=== PATIENT | female | born 1965 ===

== ENCOUNTER 2017-03-03 12:54 | Day surgery (SDC) | payer OTHER ==
[2017-02-01 13:25] VITALS: BMI 32.5
[2017-03-03] MEDS ORDERED: Lidocaine 1% Inj (20ml) ONE (13:50)
[2017-03-03] MEDS ORDERED: Bupivacaine 0.5% Inj(30mL) ONE (13:51)
[2017-03-03] MEDS ORDERED: Propofol 10 mg/ml Inj (20 ML) ONE (14:17)
[2017-03-03] MEDS ORDERED: Lidocaine Hydrochloride 5 ML INJ ONE (14:18)
[2017-03-03] MEDS ORDERED: Midazolam 2 MG/2 ML VIAL ONE (14:18)
[2017-03-03] MEDS ORDERED: Neostigmine Methylsulfate 2 MG/2 ML ML IV ONE (14:18)
[2017-03-03] MEDS ORDERED: Rocuronium 10 mg/ml (5 ml) ONE (14:19)
[2017-03-03] MEDS ORDERED: Succinylcholine 200 mg/10 ml Inj IV ONE (14:22)
[2017-03-03] MEDS ORDERED: Lidocaine 4% (Laryng-O-Jet) Kit MM ONE (14:23)
[2017-03-03] MEDS ORDERED: Lactated Ringer's 1,000 ML IV ONE ×2 (14:36)
[2017-03-03] MEDS ORDERED: Oxycodone/Acetaminophen 5/325 mg Tab PO ONE (15:57)
[2017-03-03] MEDS ORDERED: Lactated Ringer's 1,000 ML IV SCH (16:00)
--- NOTE | 2017-03-03 16:16 | PCM.SURG1 ---
Surgeon's Initial Post Op Note - Surgeon's Notes Surgeon: Davi Toscano Gas Dispatcher: [id number] Type of Anesthesia: General Endo Anesthesia Administered By: Carlos Pre-Operative Diagnosis: cholelithiasis Operative Findings: single gallstone in GB infundibulum, omental adhesions to GB Post-Operative Diagnosis: cholelithiasis Operation Performed: laparoscopic cholecystectomy Specimen/Specimens Removed: gallbladder Estimated Blood Loss: EBL {In ML}: 10 Blood Products Given: N/A Drains Used: No Drains Post-Op Condition: Good Date of Surgery/Procedure: 03/03/17 Time of Surgery/Procedure: 16:16
[2017-03-03] MEDS: HYDROmorphone 0.5 mg/0.5 ml ISec IVP PRN ×4 (16:20→17:05)
[2017-03-03 16:23] VITALS: RESP 18
--- NOTE | 2017-03-03 16:41 | CP.SDSHP ---
Same Day Surgery H & P - Allergies Allergies: Allergies No Known Allergies Allergy (Verified 12/31/16 02:52) - Physical Exam Vital Signs: Vital Signs 03/03/17 03/03/17 03/03/17 12:59 15:50 16:05 Temperature 98.6 F 97.6 F Pulse Rate 70 72 62 Respiratory 18 17 18 Rate Blood Pressure 121/78 141/86 148/92 H O2 Sat by Pulse 96 100 100 Oximetry 03/03/17 16:20 Temperature 97.3 F L Pulse Rate 58 L Respiratory 18 Rate Blood Pressure 157/93 H O2 Sat by Pulse 100 Oximetry Short Stay Discharge - Short Stay Discharge Admitting Diagnosis/Reason for Visit: K80.2 Disposition: HOME/ ROUTINE Medications: oxyCODONE/Acetaminophen [Percocet 5/325 mg Tab] 1 tab PO Q4H PRN #14 tab PRN Reason: Pain, Moderate (4-7) Referrals: Mely Puentes MD [Primary Care Provider] - Follow-up: Surgical clinic Additional Instructions (Diet, Activity): Regular Diet Call for fever more than 101 and pain uncontrolled by meds. Ok to shower in 24hours No heavy lifting more than 10 lbs for 2 weeks Follow up with Dr Toscano in the office in 2 weeks Rx in chart Progress Note/Discharge Note with Instructions: VSS, tolerating po Dressings dry and intact Stable postop
--- NOTE | 2017-03-03 19:22 | OP ---
PROCEDURE DATE: 03/03/2017 SURGEON: Dr. Toscano BLOOD BANK WORKER: Dr. Hendrix ANESTHESIA: General. ANESTHESIOLOGIST: Dr. Gonzalez PREOPERATIVE DIAGNOSIS: Cholelithiasis. POSTOPERATIVE DIAGNOSIS: Cholelithiasis. PROCEDURE: Laparoscopic cholecystectomy. DESCRIPTION OF OPERATION: With the patient in the supine position under adequate general anesthesia, the abdomen was prepped and draped in the usual sterile manner. Veress needle puncture was performe d at the umbilicus with insufflation to 15 cm water pressure of CO2 and a 10 mm laparoscopic trocar w as inserted via an infraumbilical incision. Under direct vision, additional trocars were inserted in the epigastrium and right costal margin. The gallbladder was identified and the fundus was grasped and elevated. There were numerous adhesions of the omentum to the free surface of the gallbladder an d these were taken down to expose the infundibulum of the gallbladder. The infundibular portion of t he gallbladder was grasped and retracted laterally. The cystic duct was identified and dissected. T he cystic duct was visualized anteriorly and posteriorly for a view of safety and the cystic duct was then triply clipped and divided. The cystic artery was similarly identified and triply clipped and divided and the gallbladder was dissected free of the liver bed using electrocautery. The liver bed was inspected for hemostasis and the dissection was completed. The gallbladder was placed in a speci men retrieval bag and removed via the umbilical port site. It was noted to contain a 1 cm stone. Th e right upper quadrant was irrigated and suctioned. Pneumoperitoneum was released and the trocars we re removed. The umbilical port site was closed with a [id number] fascial suture of 0 Vicryl. A ll incisions were closed with 4-0 Monocryl subcuticular sutures and Steri-Strips. Dry sterile dressi ngs were applied. The patient tolerated the procedure well and transferred to recovery room in stabl e condition. Estimated blood loss for the procedure was 10 mL. Sammy Toscano MD cc: 58 TT: 03/03/2017 19:22:09 sn
[2017-03-03 19:29] VITALS: BP 117/70; PULSE 66; TEMP 97.9; O2SAT 96
== END 2017-03-03 19:56 | disposition home or self-care (01) ==
LOC: H.OPSURG 12:54
PROVIDERS: ATTEND Specialist
DX: K80.80 Other cholelithiasis without obstruction (principal); E03.9 Hypothyroidism, unspecified; E78.5 Hyperlipidemia, unspecified

== ENCOUNTER 2017-09-19 07:55 | Emergency (ER) | payer SELFPAY ==
[2017-09-19 07:58] VITALS: BP 110/77; PULSE 83; RESP 17; TEMP 98.3; O2SAT 97; BMI 28.3
--- NOTE | 2017-09-19 09:09 | ED PDOC ---
HPI: Abdomen Time Seen by Provider: 09/19/17 08:00 Chief Complaint (Nursing): Abdominal Pain Chief Complaint (Provider): Abdominal pain History Per: Patient History/Exam Limitations: no limitations Onset/Duration Of Symptoms: Days (2) Outside of [place] travel?: No Current Symptoms Are (Timing): Still Present Location Of Pain/Discomfort: Diffuse Quality Of Discomfort: "Pain" Associated Symptoms: Diarrhea, Urinary Symptoms Additional Complaint(s): 52yo female with past medical history of hypercholesterolemia, hyperlipidemia, hyperthyroidsm, cholecystectomy, presents to the ED for evaluation of diffuse abdominal pain, present since 2 days. Patient reports associated diarrhea, dysuria. She denies any fever, chills, nausea, vomiting, hematuria, back pain. She offers no other medical complaints. Past Medical History Reviewed: Historical Data, Nursing Documentation, Vital Signs Vital Signs: Last Vital Signs Temp 98.3 F 09/19/17 07:58 Pulse 83 09/19/17 07:58 Resp 17 09/19/17 07:58 BP 110/77 09/19/17 07:58 Pulse Ox 97 09/19/17 15:56 - Medical History PMH: Hypercholesterolemia, Hyperlipidemia, Hypothyroidism Denies: Chronic Kidney Disease - Family History Family History: States: Unknown Family Hx - Home Medications Home Medications: Ambulatory Orders Medication Instructions Recorded Levothyroxine [Synthroid] 100 mcg PO DAILY 03/03/17 oxyCODONE/Acetaminophen [Percocet 1 tab PO Q4H PRN #14 tab 03/03/17 5/325 mg Tab] Famotidine [Pepcid] 20 mg PO BID PRN #10 tab 09/19/17 - Allergies Allergies/Adverse Reactions: Allergies Allergy/AdvReac Type Severity Reaction Status Date / Time No Known Allergies Allergy Verified 12/31/16 02:52 Review of Systems ROS Statement: Except As Marked, All Systems Reviewed And Found Negative Constitutional: Negative for: Fever, Chills Gastrointestinal: Positive for: Abdominal Pain, Diarrhea. Negative for: Nausea , Vomiting Genitourinary Female: Positive for: Dysuria. Negative for: Hematuria Musculoskeletal: Negative for: Back Pain Physical Exam - Reviewed Nursing Documentation Reviewed: Yes Vital Signs Reviewed: Yes - Physical Exam Appears: Positive for: Non-toxic, Uncomfortable Head Exam: Positive for: ATRAUMATIC, NORMAL INSPECTION, NORMOCEPHALIC Eye Exam: Positive for: Normal appearance Neck: Positive for: Supple Cardiovascular/Chest: Positive for: Regular Rate, Rhythm Respiratory: Positive for: Normal Breath Sounds. Negative for: Respiratory Distress Gastrointestinal/Abdominal: Positive for: Soft, Tenderness (diffuse abdominal tenderness) Back: Positive for: Normal Inspection Neurologic/Psych: Positive for: Alert, Oriented - Laboratory Results Result Diagrams: 09/19/17 09:46 09/19/17 09:46 - ECG O2 Sat by Pulse Oximetry: 97 (RA) Pulse Ox Interpretation: Normal Medical Decision Making Medical Decision Making: Time: 844 Impression: Abdominal pain x 2 days with associated dysuria Plan: -- Labs -- CT AP Reassess Time: 1334 CT AP IMPRESSION: Upper limits normal caliber of small-bowel loops at the left natanael abdomen without definite obstruction pattern appreciate this time. Clinically correlate further. No ascites or free intrarenal gas is grossly evident. Prior cholecystectomy again evident as well as hepatic steatosis. Time: 1349 Pepcid 20 mg IV fluids ordered Time: 1555 Patient able to tolerate PO intake. pt aware of CT results Stable for discharge home. Scribe Attestation: Documented by Radha Phoenix acting as a scribe for Nathaniel Otero MD. Provider Attestation: All medical record entries made by the Scribe were at my direction and personally dictated by me. I have reviewed the chart and agree that the record accurately reflects my personal performance of the history, physical exam, medical decision making, and the department course for this patient. I have also personally directed, reviewed, and agree with the discharge instructions and disposition. Disposition - Clinical Impression Clinical Impression: Abdominal pain - Patient ED Disposition Is Patient to be Admitted: No Counseled Patient/Family Regarding: Studies Performed, Diagnosis, Need For Followup - Disposition Referrals: [facility] [Outside] [facility] [Outside] Rene Ibarra MD, PhD [Staff Provider] - Disposition: Routine/Home Disposition Time: 09:00 Condition: IMPROVED Additional Instructions: follow up with your primary doctor in 1-2 days return to the ED with any worsening or concerning symptoms Prescriptions: Famotidine [Pepcid] 20 mg PO BID PRN #10 tab PRN Reason: Heartburn Instructions: Abdominal Pain (ED) Forms: [facility] (Macedonian) Print Language: DIVEHI
[2017-09-19] MEDS ORDERED: Iohexol 240 (50 ml) PO ONE (09:23)
[2017-09-19] MEDS ORDERED: Iohexol 240 (50 ml) ONE (09:30)
[2017-09-19 09:59] LABS: BASO % 0.3 % (0.0-2.0); EOS # 0.1 K/uL (0.0-0.7); EOS % 1.2 % (0.0-4.0); HEMATOCRIT 43.4 % (34.0-47.0); LYMPH # 1.9 K/uL (1.0-4.3); LYMPH % 16.5 % (20.0-40.0); MEAN CELL VOLUME 91.9 fl (81.0-99.0); MEAN CORPUSCULAR HEMOGLOBIN 29.7 pg (27.0-31.0); MEAN CORPUSCULAR HGB CONC 32.3 g/dL (33.0-37.0); MEAN PLATELET VOLUME 9.4 fl (7.2-11.7); MONO # 0.9 K/uL (0.0-0.8); MONO % 7.6 % (0.0-10.0); NEUT # 8.5 K/uL (1.8-7.0); NEUT % 74.4 % (50.0-75.0); NRBC % 0.1 % (0.0-0.0); RED CELL DISTRIBUTION WIDTH 13.6 % (11.5-14.5); WHITE BLOOD COUNT 11.4 K/uL (4.8-10.8)
[2017-09-19 10:05] LABS: RBC URINE 4 /hpf (0-3); URINE BACTERIA RARE (<OCC); URINE BILIRUBIN NEGATIVE (NEGATIVE); URINE BLOOD MODERATE (NEGATIVE); URINE COLOR YELLOW (YELLOW); URINE GLUCOSE (UA) NEG (Normal); URINE KETONE NEGATIVE (NEGATIVE); URINE LEUKOCYTE ESTERASE SMALL Leu/uL (Negative); URINE PROTEIN 30 mg/dL (NEGATIVE); URINE UROBILINOGEN 0.2-1.0 mg/dL (0.2-1.0); WBC URINE 3 /hpf (0-5)
[2017-09-19 10:14] LABS: ALB/GLOB RATIO 1.3 (1.0-2.1); ALKALINE PHOSPHATASE 148 U/L (38-126); ALT/SGPT 74 U/L (9-52); AST/SGOT 64 U/L (14-36); BILIRUBIN,TOTAL 0.2 mg/dl (0.2-1.3); BLOOD UREA NITROGEN 21 mg/dl (7-17); CALCIUM 9.3 mg/dL (8.4-10.2); CARBON DIOXIDE 23 mmol/L (22-30); CHLORIDE 108 mmol/L (98-107); GFR AFRICAN-AMERICAN > 60; GLUCOSE,RANDOM 103 mg/dL (65-105); LIPASE 138 U/L (23-300); POTASSIUM 3.9 MMOL/L (3.6-5.0); SODIUM 141 mmol/l (132-148); TOTAL PROTEIN 7.7 G/DL (6.3-8.2)
[2017-09-19] MEDS ORDERED: Iohexol 300 100 ML IJ ONE (12:36)
[2017-09-19] MEDS ORDERED: Sodium Chloride 0.9% 50 ML IV ONE (12:37)
--- NOTE | 2017-09-19 13:36 | CT ---
PROCEDURE: CT Abdomen and Pelvis with contrast HISTORY: abdominal paina COMPARISON: Abdomen pelvis CT with contrast 12/31/2016. TECHNIQUE: Contrast dose: 587.72 Radiation dose: Total exam DLP = 587.72 mGy-cm. This CT exam was performed using one or more of the following dose reduction techniques: Automated exposure control, adjustment of the mA and/or kV according to patient size, and/or use of iterative reconstruction technique. FINDINGS: LOWER THORAX: Trace bilateral basilar dependent atelectasis is appreciated. LIVER: Diffuse fatty infiltration liver is appreciated once again, without focal mass appreciable. GALLBLADDER AND BILE DUCTS: Prior cholecystectomy with likely related, stable dilatation of the common hepatic and proximal common bile ducts. PANCREAS: Unremarkable. No gross lesion or ductal dilatation. SPLEEN: Unremarkable. ADRENALS: Unremarkable. No mass. KIDNEYS AND URETERS: Unremarkable. No hydronephrosis. No solid mass. VASCULATURE: Unremarkable. No aortic aneurysm. BOWEL: There is nonspecific limited dilatation of mid small bowel loops in the left natanael abdomen measuring 2.3 cm greatest dimension. No related mesenteric edema is appreciated in the large bowel is unremarkable. No suspicious mural thickening is grossly evident throughout large and small bowel. APPENDIX: Normal-appearing retrocecal appendix is identified. PERITONEUM: Unremarkable. No free fluid. No free air. LYMPH NODES: Unremarkable. No enlarged lymph nodes. BLADDER: Unremarkable. REPRODUCTIVE: Unremarkable. BONES: No acute fracture. OTHER FINDINGS: None. IMPRESSION: Upper limits normal caliber of small-bowel loops at the left natanael abdomen without definite obstruction pattern appreciate this time. Clinically correlate further. No ascites or free intrarenal gas is grossly evident. Prior cholecystectomy again evident as well as hepatic steatosis.
[2017-09-19] MEDS ORDERED: Sodium Chloride 0.9% 1,000 ML IV STA (14:01)
== END 2017-09-19 17:45 | disposition home or self-care (01) ==
LOC: H.ER 07:55
DX: R10.9 Unspecified abdominal pain (principal); K21.9 Gastro-esophageal reflux disease without esophagitis; E03.9 Hypothyroidism, unspecified; E78.00 Pure hypercholesterolemia, unspecified; K76.0 Fatty (change of) liver, not elsewhere classified; Z90.49 Acquired absence of other specified parts of digestive tract
CPT/HCPCS: 74177; 80053; 81003; 81025; 83690; 85025; 96374; 99283; J7040; Q9966; Q9967

== ENCOUNTER 2017-10-04 10:17 | Day surgery (SDC) | payer SELFPAY ==
[2017-10-04] MEDS ORDERED: Lactated Ringer's 1,000 ML IV ONE (10:31)
[2017-10-04] MEDS ORDERED: Propofol 10 mg/ml Inj (20 ML) ONE (11:15)
[2017-10-04] MEDS ORDERED: Lidocaine 2% MPF (5 ml) Inj ONE (11:15)
[2017-10-04 11:33] VITALS: TEMP 97
[2017-10-04 11:50] VITALS: BP 100/61; PULSE 60; RESP 16; O2SAT 99
== END 2017-10-04 12:14 | disposition home or self-care (01) ==
LOC: H.ENDO 10:17
PROVIDERS: ATTEND Internal Medicine Gastroenterology
DX: Z12.11 Encounter for screening for malignant neoplasm of colon (principal); K64.8 Other hemorrhoids
CPT/HCPCS: G0121; J2704; J7120

== ENCOUNTER 2019-03-05 06:39 | Emergency (ER) | payer OTHER ==
[2019-03-05 06:40] VITALS: BMI 28.3
[2019-03-05 07:03] VITALS: O2SAT 97
[2019-03-05] MEDS ORDERED: Sodium Chloride 0.9% 1,000 ML IV STA (07:22)
--- NOTE | 2019-03-05 07:46 | ED PDOC ---
HPI: Abdomen Time Seen by Provider: 03/05/19 07:12 Chief Complaint (Nursing): Abdominal Pain Chief Complaint (Provider): Abdominal Pain History Per: Patient History/Exam Limitations: no limitations Onset/Duration Of Symptoms: Days (x 1) Outside of [place] travel?: No Current Symptoms Are (Timing): Still Present Context: Food Location Of Pain/Discomfort: Diffuse Quality Of Discomfort: "Pain" Associated Symptoms: Nausea, Diarrhea Alleviating Factors: None Additional Complaint(s): 53 year old female with a history of hypothyroidism presents to the ED for evaluation of diffuse abdominal pain and diarrhea, onset last night. Patient reports 4 episodes of watery, non-bloody diarrhea, intermittent abdominal cramping and mild nausea as well. She states that she ate pizza and drank some soda prior to onset. Patient has not eaten anything since symptoms began. Denies vomiting, constipation, fever, recent travel, chest pain. PMD: Dr. Portillo Past Medical History Reviewed: Historical Data, Nursing Documentation, Vital Signs Vital Signs: Last Vital Signs Temp 97.7 F 03/05/19 07:00 Pulse 63 03/05/19 07:00 Resp 14 03/05/19 07:00 BP 112/76 03/05/19 07:00 Pulse Ox 97 03/05/19 07:00 - Medical History PMH: Hypercholesterolemia, Hyperlipidemia, Hypothyroidism Denies: Chronic Kidney Disease - Surgical History Surgical History: Cholecystectomy - Family History Family History: States: Unknown Family Hx - Home Medications Home Medications: Ambulatory Orders Medication Instructions Recorded Levothyroxine [Synthroid] 100 mcg PO DAILY 03/03/17 Dicyclomine [Dicyclomine HCl] 10 mg PO TID #15 cap 03/05/19 Ondansetron ODT [Zofran ODT] 4 mg PO Q8 PRN #12 odt 03/05/19 - Allergies Allergies/Adverse Reactions: Allergies Allergy/AdvReac Type Severity Reaction Status Date / Time No Known Allergies Allergy Verified 03/05/19 06:56 Review of Systems ROS Statement: Except As Marked, All Systems Reviewed And Found Negative Constitutional: Negative for: Fever, Chills Cardiovascular: Negative for: Chest Pain Gastrointestinal: Positive for: Nausea, Abdominal Pain, Diarrhea. Negative for: Vomiting, Constipation Physical Exam - Reviewed Nursing Documentation Reviewed: Yes Vital Signs Reviewed: Yes - Physical Exam Appears: Positive for: Non-toxic, No Acute Distress, Uncomfortable Head Exam: Positive for: ATRAUMATIC, NORMAL INSPECTION, NORMOCEPHALIC Skin: Positive for: Normal Color, Warm, Dry. Negative for: Rash Eye Exam: Positive for: EOMI, Normal appearance, PERRL Neck: Positive for: Normal, Painless ROM, Supple Cardiovascular/Chest: Positive for: Regular Rate, Rhythm. Negative for: Murmur Respiratory: Positive for: Normal Breath Sounds. Negative for: Respiratory Distress Gastrointestinal/Abdominal: Positive for: Tenderness (mild diffuse tenderness). Negative for: Mass, Guarding, Rebound Back: Positive for: Normal Inspection. Negative for: L CVA Tenderness, R CVA Tenderness Extremity: Positive for: Normal ROM (x 4). Negative for: Deformity Neurological/Psych: Positive for: Awake, Alert, Normal Tone, Oriented (x 3). Negative for: Motor/Sensory Deficits - Laboratory Results Result Diagrams: 03/05/19 07:40 03/05/19 07:40 - ECG ECG: Positive for: Interpreted By Me, Viewed By Me ECG Rhythm: Positive for: Normal QRS, Normal ST Segment, Sinus Rhythm. Negative for: ST/T Changes Rate: 61 O2 Sat by Pulse Oximetry: 97 (RA) Pulse Ox Interpretation: Normal - Progress Re-evaluation Time: 10:29 Condition: Re-examined, Improved Medical Decision Making Medical Decision Makin:21 Impression: abdominal pain and diarrhea Differential diagnoses include, but are not limited to: acute gastroenteritis, colitis, diverticulitis Initial Plan: --CT Abd & Pelvis --CBC --CMP --Lipase --Urine dip --Urine preg --Bentyl 10 mg PO --Zofran Inj 4 mg IV --NS IV 1,000 mls 09:[address] COMPARISON: 09/19/2017. TECHNIQUE: CT scan of the abdomen and pelvis was performed after administration of intravenous contrast. Oral contrast was not administered. Coronal and sagittal reformatted images were obtained. Contrast dose 95 cc Omnipaque 300 Radiation dose: Total exam DLP = 519.73 mGy-cm. This CT exam was performed using one or more of the following dose reduction te chniques: Automated exposure control, adjustment of the mA and/or kV according to patient size, and/or use of iterative reconstruction technique. FINDINGS: LOWER THORAX: The visualized lungs are clear. LIVER: Mild hepatomegaly and fatty liver. Normal homogeneous enhancement. No gross lesion or ductal dilatation. GALLBLADDER AND BILE DUCTS: Surgically absent. PANCREAS: Normal in size with homogeneous enhancement. No gross lesion or ductal dilatation. SPLEEN: Normal in size and appearance. ADRENALS: No discrete nodule. KIDNEYS AND URETERS: Normal in size with homogeneous enhancement. No hydronephrosis. No solid mass. VASCULATURE: No aortic aneurysm. There are early aortic atherosclerotic calcifications and mural plaque present. BOWEL: Evaluation of the bowel is limited in the absence of oral contrast. The proximal small bowel loops are normal in caliber. There is mild dilatation of fluid-filled mid and distal small bowel loops with mild mural enhancement. There is fluid in the ascending and transverse colon. There is also apparent mild mural thickening in the left hemicolon with mild mural enhancement. No evidence for bowel obstruction. APPENDIX: Normal appendix. PERITONEUM: No free fluid. No free air. LYMPH NODES: No enlarged lymph nodes. BLADDER: Well distended and normal in appearance. REPRODUCTIVE: The uterus is normal in size. BONES: No acute fracture. Within normal limits for the patient's age. OTHER FINDINGS: None. IMPRESSION: Findings are most compatible with nonspecific acute infectious/inflammatory enterocolitis. No evidence for bowel obstruction. Mild hepatomegaly and fatty liver. Scribe Attestation: Documented by Yesica Valentin, acting as a scribe Fidencio Russo MD Provider Scribe Attestation: All medical record entries made by the Scribe were at my direction and personally dictated by me. I have reviewed the chart and agree that the record accurately reflects my personal performance of the history, physical exam, medical decision making, and the department course for this patient. I have also personally directed, reviewed, and agree with the discharge instructions and disposition. Disposition - Clinical Impression Clinical Impression: Enterocolitis - Patient ED Disposition Is Patient to be Admitted: No Doctor Will See Patient In The: Office Counseled Patient/Family Regarding: Studies Performed, Diagnosis, Need For Followup - Disposition Referrals: [facility] [Outside] Disposition: Routine/Home Disposition Time: 10:30 Condition: IMPROVED Additional Instructions: SHEILA SUE, thank you for letting us take care of you today. Your provider was Renae Russo MD and you were treated for ABD PAIN. The emergency medical care you received today was directed at your acute symptoms. If you were prescribed any medication, please fill it and take as directed. It may take several days for your symptoms to resolve. Return to the Emergency Department if your symptoms worsen, do not improve, or if you have any other problems. Please contact your doctor or call one of the physicians/clinics you have been referred to that are listed on the Patient Visit Information form that is included in your discharge packet. Bring any paperwork you were given at dis charge with you along with any medications you are taking to your follow up visit. Our treatment cannot replace ongoing medical care by a primary care provider outside of the emergency department. Thank you for allowing the [facility] team to be part of your care today. If you had an X-Ray or CT scan: A Radiologist will review the ED reading if any change in treatment is needed we will contact you. Prescriptions: Dicyclomine [Dicyclomine HCl] 10 mg PO TID #15 cap Ondansetron ODT [Zofran ODT] 4 mg PO Q8 PRN #12 odt PRN Reason: Nausea/Vomiting Instructions: Diarrhea in Adolescents and Adults
[2019-03-05 08:01] LABS: BASO % 0.7 % (0.0-2.0); EOS # 0.2 K/uL (0.0-0.7); EOS % 3.7 % (0.0-4.0); LYMPH # 2.1 K/uL (1.0-4.3); LYMPH % 39.9 % (20.0-40.0); MEAN CELL VOLUME 89.6 fl (81.0-99.0); MEAN CORPUSCULAR HEMOGLOBIN 29.7 pg (27.0-31.0); MEAN CORPUSCULAR HGB CONC 33.1 g/dL (33.0-37.0); MEAN PLATELET VOLUME 9.3 fl (7.2-11.7); MONO # 0.6 K/uL (0.0-0.8); NEUT # 2.3 K/uL (1.8-7.0); NEUT % 44.7 % (50.0-75.0); NRBC % 0.1 % (0.0-0.0); RBC 4.39 Mil/uL (3.80-5.20); RED CELL DISTRIBUTION WIDTH 13.8 % (11.5-14.5); WHITE BLOOD COUNT 5.2 K/uL (4.8-10.8)
[2019-03-05 08:14] LABS: ALB/GLOB RATIO 1.1 (1.0-2.1); ALBUMIN 4.3 g/dL (3.5-5.0); ALT/SGPT 88 U/L (9-52); AST/SGOT 68 U/L (14-36); BLOOD UREA NITROGEN 11 mg/dl (7-17); CALCIUM 9.3 mg/dL (8.4-10.2); GFR NON-AFRICAN AMERICAN > 60; LIPASE 97 U/L (23-300)
--- NOTE | 2019-03-05 09:11 | CARD ---
APPROVED REPORT Date of service: 03/05/2019 EKG Measurement Heart [id number] <Conclusion> Normal sinus rhythm Normal ECG
[2019-03-05] MEDS ORDERED: Sodium Chloride 0.9% 50 ML IV ONE (09:18)
[2019-03-05] MEDS ORDERED: Iohexol 300 100 ML IJ ONE (09:18)
--- NOTE | 2019-03-05 10:02 | CT ---
Date of service: 03/05/2019 PROCEDURE: CT Abdomen and Pelvis with contrast HISTORY: abdominal pain diarrhea COMPARISON: 09/19/2017. TECHNIQUE: CT scan of the abdomen and pelvis was performed after administration of intravenous contrast. Oral contrast was not administered. Coronal and sagittal reformatted images were obtained. Contrast dose 95 cc Omnipaque 300 Radiation dose: Total exam DLP = 519.73 mGy-cm. This CT exam was performed using one or more of the following dose reduction techniques: Automated exposure control, adjustment of the mA and/or kV according to patient size, and/or use of iterative reconstruction technique. FINDINGS: LOWER THORAX: The visualized lungs are clear. LIVER: Mild hepatomegaly and fatty liver. Normal homogeneous enhancement. No gross lesion or ductal dilatation. GALLBLADDER AND BILE DUCTS: Surgically absent. PANCREAS: Normal in size with homogeneous enhancement. No gross lesion or ductal dilatation. SPLEEN: Normal in size and appearance. ADRENALS: No discrete nodule. KIDNEYS AND URETERS: Normal in size with homogeneous enhancement. No hydronephrosis. No solid mass. VASCULATURE: No aortic aneurysm. There are early aortic atherosclerotic calcifications and mural plaque present. BOWEL: Evaluation of the bowel is limited in the absence of oral contrast. The proximal small bowel loops are normal in caliber. There is mild dilatation of fluid-filled mid and distal small bowel loops with mild mural enhancement. There is fluid in the ascending and transverse colon. There is also apparent mild mural thickening in the left hemicolon with mild mural enhancement. No evidence for bowel obstruction. APPENDIX: Normal appendix. PERITONEUM: No free fluid. No free air. LYMPH NODES: No enlarged lymph nodes. BLADDER: Well distended and normal in appearance. REPRODUCTIVE: The uterus is normal in size. BONES: No acute fracture. Within normal limits for the patient's age. OTHER FINDINGS: None. IMPRESSION: Findings are most compatible with nonspecific acute infectious/inflammatory enterocolitis. No evidence for bowel obstruction. Mild hepatomegaly and fatty liver.
[2019-03-05 11:01] VITALS: BP 102/60; PULSE 60; RESP 17; TEMP 98
== END 2019-03-05 10:59 | disposition home or self-care (01) ==
LOC: H.ER 06:39
DX: K52.9 Noninfective gastroenteritis and colitis, unspecified (principal); E03.9 Hypothyroidism, unspecified; E78.00 Pure hypercholesterolemia, unspecified
CPT/HCPCS: 74177; 80053; 81025; 83690; 85025; 93005; 96360; 99285; J2405; J7030; Q9967